=== PATIENT | male | born 1995 | race American Indian/Alaskan Native ===

== ENCOUNTER 2016-07-25 11:14 | Day surgery (SDC) | payer BC ==
[~2016-07-25] VITALS: Ht 30.5 cm; Wt 0.5 kg
== END 2016-07-25 15:25 | disposition home or self-care (01) ==
LOC: OR 11:14
PROC: 0DJD8ZZ Inspection of Lower Intestinal Tract, Via Natural or Artificial Opening Endoscopic (ICD-10-PCS; principal; 2016-07-25)
DX: K64.8 Other hemorrhoids (principal); K92.1 Melena; R19.4 Change in bowel habit
CPT/HCPCS: J2001; J2704